=== PATIENT | female | born 1985 | race Caucasian/White ===

== ENCOUNTER → 2017-08-12 | Outpatient (CLI) | payer OTHER ==
[~2017-08-12] MED LIST: AMITRIPTYLINE H75 M1; FIORICET 50-321 EACH PO; MAXALT; MULTIPLE VITAM1 EAC1 PO; NORFLEX100 MG PO; NUVARING VAGIN1 EACH; PROZAC 20 MG20 M1; TOPAMAX; ULTRAM 50MG TAB50 MG PO; ZPAK PO
== END ==
LOC: M.ULTRA 13:24 → M.LAB 13:24 → M.ULTRA 14:00
DX: O34.81 Maternal care for other abnormalities of pelvic organs, first trimester (principal); O34.531 Maternal care for retroversion of gravid uterus, first trimester; Z3A.01 Less than 8 weeks gestation of pregnancy

== ENCOUNTER → 2017-08-14 | Outpatient (CLI) | payer OTHER | LOC: M.LAB 11:32 | DX: Z32.01 Encounter for pregnancy test, result positive (principal); Z98.51 Tubal ligation status; Z3A.01 Less than 8 weeks gestation of pregnancy ==

== ENCOUNTER → 2017-08-17 | Outpatient (CLI) | payer OTHER | LOC: M.LAB 10:18 | DX: Z32.01 Encounter for pregnancy test, result positive (principal); Z98.51 Tubal ligation status; Z3A.01 Less than 8 weeks gestation of pregnancy ==

== ENCOUNTER → 2017-08-19 | Outpatient (CLI) | payer OTHER | LOC: M.ULTRA 11:27 | DX: O43.891 Other placental disorders, first trimester (principal); Z98.51 Tubal ligation status; Z3A.01 Less than 8 weeks gestation of pregnancy ==

== ENCOUNTER → 2017-08-21 | Outpatient (CLI) | payer OTHER | LOC: M.LAB 18:25 | DX: Z32.01 Encounter for pregnancy test, result positive (principal); Z98.51 Tubal ligation status ==

== ENCOUNTER → 2017-08-23 | Outpatient (CLI) | payer OTHER | LOC: M.LAB 18:29 | DX: Z32.01 Encounter for pregnancy test, result positive (principal); Z98.51 Tubal ligation status; Z3A.01 Less than 8 weeks gestation of pregnancy ==

== ENCOUNTER → 2017-08-24 | Outpatient (CLI) | payer OTHER | LOC: M.ULTRA 08:28 | DX: O34.81 Maternal care for other abnormalities of pelvic organs, first trimester (principal); Z3A.01 Less than 8 weeks gestation of pregnancy; Z98.51 Tubal ligation status ==

== ENCOUNTER → 2017-10-23 | Outpatient (CLI) | payer OTHER | LOC: M.ULTRA 10:58 | DX: M79.604 Pain in right leg (principal); M79.89 Other specified soft tissue disorders ==

== ENCOUNTER → 2020-12-06 | Outpatient (CLI) | payer BC | LOC: M.ULTRA 12-04 09:40 | PROVIDERS: ATTEND Nurse Practitioner Family | DX: R16.0 Hepatomegaly, not elsewhere classified (principal) ==